=== PATIENT | female | born 2005 | race Caucasian/White ===

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

== ENCOUNTER 2023-03-24 15:50 | Emergency (ER) | payer OTHER ==
[~2023-03-24] VITALS: Ht 154.9 cm; Wt 48.5 kg
[~2023-03-24 15:50] MED LIST changes: +AMOX-CLAV 875-1 EACH PO; +PEPCID20 MG PO
[2023-03-24 16:33] LABS: BILIRUBIN Negative (Negative); BLOOD Negative (Negative); CLARITY Cloudy (Clear); COLOR Yellow (Yellow); GLUCOSE Negative (Negative); KETONE Trace (Negative); LEUKO ESTERASE Negative (Negative); NITRITE Negative (Negative); PH 5.5 (4.5-8.0); SPECIFIC GRAVITY 1.025 (1.001-1.030); UROBILINOGEN 0.2 E.U./dl (0.0-1.0)
[2023-03-24 16:41] LABS: URINE AMPHETAMINES Negative (1000ng/ml); URINE BARBITURATES Negative (200ng/ml); URINE BENZODIAZEPINES Negative (200ng/ml); URINE CANNABINOIDS (THC) Positive (50ng/ml); URINE COCAINE Negative (300ng/ml); URINE METHADONE Negative (300ng/ml); URINE OPIATES Negative (300ng/ml); URINE PHENCYCLIDINE Negative (25ng/ml)
[2023-03-24 16:49] LABS: BACTERIA 1+
[2023-03-24] MEDS ORDERED: AMOX-CLAV 875-1 EACH PO (17:13)
[2023-03-24] MEDS ORDERED: REGLAN10 M1 PO (17:13)
== END 2023-03-24 17:18 | disposition home or self-care (01) ==
LOC: ED 15:50
PROVIDERS: Internal Medicine
DX: N39.0 Urinary tract infection, site not specified (principal); R11.10 Vomiting, unspecified; H66.91 Otitis media, unspecified, right ear; Z79.899 Other long term (current) drug therapy

== ENCOUNTER 2023-06-27 10:45 | Emergency (ER) | payer OTHER ==
[~2023-06-27] VITALS: Ht 154.9 cm; Wt 48.5 kg
[~2023-06-27 10:45] MED LIST changes: +REGLAN10 M1 PO
[2023-06-27 11:53] LABS: BASO # 0.1 10*3/uL (0.0-0.1); BASO % 0.5 % (0.0-1.0); EOS # 0.1 10*3/uL (0.0-0.4); EOS % 1.1 % (1.0-4.0); HEMATOCRIT 39.4 % (37.0-47.0); LYMPH # 1.6 10*3/uL (1.3-4.4); LYMPH % 15.6 % (27.0-41.0); MEAN CELL VOLUME 95.2 fl (81.0-99.0); MEAN CORPUSCULAR HGB 33.8 pg (27.0-31.0); MEAN CORPUSCULAR HGB CONC 35.5 g/dl (33.0-37.0); MEAN PLATELET VOLUME 9.3 fl (9.6-12.3); MONO # 0.7 10*3/uL (0.1-1.0); MONO % 6.7 % (3.0-9.0); NEUT # 7.8 10*3/uL (2.3-7.9); NEUT % 75.9 % (47.0-73.0); PLATELET COUNT AUTOMATED 292 10*3/uL (130-400); RED BLOOD COUNT 4.14 10*6/uL (4.10-5.10); RED CELL DISTRI WIDTH 11.7 % (0-14.5); WHITE BLOOD COUNT 10.2 10*3/uL (4.8-10.8)
[2023-06-27 11:56] LABS: BILIRUBIN Negative (Negative); BLOOD Negative (Negative); CLARITY Cloudy (Clear); COLOR Yellow (Yellow); GLUCOSE Negative (Negative); KETONE 2+ (Negative); LEUKO ESTERASE Negative (Negative); NITRITE Negative (Negative); PH 5.5 (4.5-8.0); SPECIFIC GRAVITY 1.025 (1.001-1.030); UROBILINOGEN 0.2 E.U./dl (0.0-1.0)
[2023-06-27 12:16] LABS: ALKALINE PHOSPHATASE 48 U/L (46-116); BUN 8 mg/dl (9-23); CHLORIDE 106 mmol/L (98-107); POTASSIUM 3.8 mmol/L (3.4-5.1); SGPT/ALT 8 U/L (5-49); TOTAL PROTEIN 7.7 gm/dL (6.0-8.0)
[2023-06-27 12:18] LABS: EPITHELIAL CELLS TNTC
[2023-06-27] MEDS ORDERED: GOOD NEIGHBOR L10 MG PO (13:08)
== END 2023-06-27 13:13 | disposition home or self-care (01) ==
LOC: ED 10:45
PROVIDERS: Internal Medicine
DX: O26.891 Other specified pregnancy related conditions, first trimester (principal); J30.9 Allergic rhinitis, unspecified; Z79.899 Other long term (current) drug therapy; Z3A.01 Less than 8 weeks gestation of pregnancy

== ENCOUNTER → 2023-11-10 | Outpatient (CLI) | payer OTHER ==
[~2023-11-10] MED LIST changes: +GOOD NEIGHBOR L10 MG PO
[2023-11-10 15:05] LABS: BASO % 0.7 % (0.0-1.0); EOS # 0.3 10*3/uL (0.0-0.4); EOS % 4.6 % (1.0-4.0); LYMPH % 33.7 % (27.0-41.0); MEAN CORPUSCULAR HGB 33.7 pg (27.0-31.0); MEAN CORPUSCULAR HGB CONC 36.3 g/dl (33.0-37.0); MEAN PLATELET VOLUME 9.7 fl (9.6-12.3); MONO # 0.5 10*3/uL (0.1-1.0); MONO % 8.1 % (3.0-9.0); NEUT # 3.1 10*3/uL (2.3-7.9); NEUT % 52.7 % (47.0-73.0); PLATELET COUNT AUTOMATED 240 10*3/uL (130-400); RED CELL DISTRI WIDTH 11.7 % (0-14.5); WHITE BLOOD COUNT 5.9 10*3/uL (4.8-10.8)
== END | disposition home or self-care (01) ==
LOC: US 14:00 → LAB 14:05
PROVIDERS: ATTEND Nurse Practitioner Women's Health
DX: R30.0 Dysuria (principal); N92.1 Excessive and frequent menstruation with irregular cycle; R53.83 Other fatigue

== ENCOUNTER → 2024-10-03 | Outpatient (CLI) | payer OTHER ==
[2024-10-03 14:55] LABS: ACT PARTIAL THROMBO TIME 27.6 SECONDS (20.0-32.1)
== END | disposition home or self-care (01) ==
LOC: LAB 13:39
PROVIDERS: ATTEND Nurse Practitioner Family
DX: R23.3 Spontaneous ecchymoses (principal)

== ENCOUNTER 2024-11-09 12:11 | Emergency (ER) | payer OTHER ==
[~2024-11-09] VITALS: Ht 154.9 cm; Wt 56.2 kg
[2024-11-09 12:55] LABS: BILIRUBIN Negative (Negative); BLOOD Negative (Negative); CLARITY Clear (Clear); COLOR Yellow (Yellow); KETONE Negative (Negative); LEUKO ESTERASE Negative (Negative); NITRITE Negative (Negative); PH 5.5 (4.5-8.0); SPECIFIC GRAVITY 1.025 (1.001-1.030); UROBILINOGEN 0.2 E.U./dl (0.0-1.0)
[2024-11-09 13:14] LABS: BACTERIA 2+; EPITHELIAL CELLS 21-30; MUCOUS 1+
== END 2024-11-09 13:33 | disposition home or self-care (01) ==
LOC: ED 12:11
PROVIDERS: Nurse Practitioner
DX: Z32.02 Encounter for pregnancy test, result negative (principal); R10.30 Lower abdominal pain, unspecified